=== PATIENT | male | born 1980 | race American Indian/Alaskan Native ===

== ENCOUNTER 2019-12-09 11:39 | Emergency (ER) | payer SELFPAY ==
--- NOTE | 2019-12-09 11:50 | Emergency Department Report ---
ED ENT HPI - General Chief complaint: Dental/Oral Stated complaint: TOOTH ACHE Time Seen by Provider: 12/09/19 11:43 Source: patient Mode of arrival: Ambulatory Limitations: No Limitations - History of Present Illness Initial comments: This is a 39-year-old male nontoxic well in appearance with no signs of distress presents to the ED with complaint of toothache. Patient has some swelling to left upper gingival. Denies following up with a dentist. Denies any fever, chills, headache, nausea, vomiting, chest pain or SOB. Denies any other complaints. Denies any allergies. MD complaint: tooth pain -: days(s) Location: tooth # Severity: mild Severity scale (0 -10): 8 Quality: aching Consistency: constant Improves with: none Worsens with: none Context- Dental: history of dental caries, poor dental care Associated Symptoms: gum swelling, toothache. denies: fever, cough, pain with swallowing, sore throat, tinnitus, hearing loss, discharge from ear, rhinorrhea - Related Data Previous Rx's Medication Instructions Recorded Last Taken Type Chlorhexidine Mouthwash [Peridex] 15 ml MM BID #1 bottle 12/09/19 Unknown Rx Clindamycin [Clindamycin CAP] 300 mg PO Q8H #21 cap 12/09/19 Unknown Rx Naproxen 500 mg PO Q8H PRN #20 tablet 12/09/19 Unknown Rx Allergies Allergy/AdvReac Type Severity Reaction Status Date / Time No Known Allergies Allergy Unverified 12/09/19 11:41 ED Dental HPI - General Chief complaint: Dental/Oral Stated complaint: TOOTH ACHE Time Seen by Provider: 12/09/19 11:43 Source: patient Mode of arrival: Ambulatory Limitations: No Limitations - Related Data Previous Rx's Medication Instructions Recorded Last Taken Type Chlorhexidine Mouthwash [Peridex] 15 ml MM BID #1 bottle 12/09/19 Unknown Rx Clindamycin [Clindamycin CAP] 300 mg PO Q8H #21 cap 12/09/19 Unknown Rx Naproxen 500 mg PO Q8H PRN #20 tablet 12/09/19 Unknown Rx Allergies Allergy/AdvReac Type Severity Reaction Status Date / Time No Known Allergies Allergy Unverified 12/09/19 11:41 ED Review of Systems ROS: Stated complaint: TOOTH ACHE Other details as noted in HPI Constitutional: denies: chills, fever Eyes: denies: eye pain, eye discharge, vision change ENT: dental pain. denies: ear pain, throat pain Respiratory: denies: cough, shortness of breath, wheezing Cardiovascular: denies: chest pain, palpitations Endocrine: no symptoms reported Gastrointestinal: denies: abdominal pain, nausea, diarrhea Genitourinary: denies: urgency, dysuria Musculoskeletal: denies: back pain, joint swelling, arthralgia Skin: denies: rash, lesions Neurological: denies: headache, weakness, paresthesias Psychiatric: denies: anxiety, depression Hematological/Lymphatic: denies: easy bleeding, easy bruising ED Past Medical Hx - Past Medical History Previous Medical History?: No - Medications Home Medications: Home Medications Medication Instructions Recorded Confirmed Last Taken Type Chlorhexidine Mouthwash [Peridex] 15 ml MM BID #1 bottle 12/09/19 Unknown Rx Clindamycin [Clindamycin CAP] 300 mg PO Q8H #21 cap 12/09/19 Unknown Rx Naproxen 500 mg PO Q8H PRN #20 tablet 12/09/19 Unknown Rx ED Physical Exam - General Limitations: No Limitations General appearance: alert, in no apparent distress - Head Head exam: Present: atraumatic, normocephalic - Eye Eye exam: Present: normal appearance - Expanded ENT Exam Expanded Ear exam: Present: normal external inspection Mouth exam: Present: normal external inspection, tongue normal. Absent: drooling, trismus, muffled voice Teeth exam: Present: dental caries, fractured tooth #, dental tenderness #, gi ngival enlargement, other (uvula midline. ) 1 - Fractured, Dental Tenderness 2 - Other (0.5 cm abscess) Throat exam: Positive: normal inspection, tonsillar exudate. Negative: tonsillar erythema, tonsillomegaly, R peritonsillar mass, L peritonsillar mass - Neck Neck exam: Present: normal inspection, full ROM. Absent: tenderness, meningismus, lymphadenopathy - Extremities Exam Extremities exam: Present: normal inspection, full ROM - Back Exam Back exam: Present: normal inspection, full ROM - Neurological Exam Neurological exam: Present: alert, oriented X3 - Psychiatric Psychiatric exam: Present: normal affect, normal mood - Skin Skin exam: Present: warm, dry, intact, normal color. Absent: rash ED Course - Reevaluation(s) Reevaluation #1: 12/09/19 11:51 Patient is speaking in full sentences with no signs of distress noted. - Procedure Description Procedures done: Under sterile field, I used drape and placed 4x4 inside mouth. I then used a 25g with 6 cc syringe and aspiriated 1 cc of drainage of the gingival abscess. Patient tolerated well. Bleeding under control. ED Medical Decision Making - Medical Decision Making Abscess present and drained. Will discharge with clinda. Patient was instructed to Follow-up with a dentist doctor in 2 days or if symptoms worsen and continue return to emergency room as soon as possible. At time of discharge, the patient does not seem toxic or ill in appearance. No acute signs of distress noted. Patient agrees to discharge treatment plan of care. No further questions noted by the patient. Critical care attestation.: If time is entered above; I have spent that time in minutes in the direct care of this critically ill patient, excluding procedure time. ED Disposition Clinical Impression: Dental caries, Gingivitis, Dental abscess Disposition: DC- TO HOME OR SELFCARE Is pt being admited?: No Does the pt Need Aspirin: No Condition: Stable Instructions: Dental Abscess (ED), Acetaminophen/Codeine (By mouth) Additional Instructions: Follow-up with a dentist doctor in 2 days or if symptoms worsen and continue return to emergency room as soon as possible. Prescriptions: Clindamycin [Clindamycin CAP] 300 mg PO Q8H #21 cap Naproxen 500 mg PO Q8H PRN #20 tablet PRN Reason: Pain, Moderate (4-6) Chlorhexidine Mouthwash [Peridex] 15 ml MM BID #1 bottle Referrals: PRIMARY CAREMD [Referring] - 3-5 Days JLUIÁN REYNOLDS MD [Staff Physician] - 3-5 Days [facility] [Provider Group] - 3-5 Days Forms: Work/School Release Form(ED)
[2019-12-09 12:09] VITALS: BP 137/95
== END 2019-12-09 12:06 | disposition home or self-care (01) ==
LOC: ED 11:39
DX: K04.7 Periapical abscess without sinus (principal); K02.9 Dental caries, unspecified; K05.10 Chronic gingivitis, plaque induced

== ENCOUNTER 2020-11-08 21:43 | Emergency (ER) | payer SELFPAY ==
[2020-11-08 22:55] LABS: Hematocrit 50.4 % (35.5-45.6); Hemoglobin 16.9 gm/dl (11.8-15.2); Mean Corpuscular HGB Conc 34 % (32-34); Mean Corpuscular Volume 100 fl (84-94); Platelet Count 371 K/mm3 (140-440); Red Blood Count 5.06 M/mm3 (3.65-5.03); Red Cell Distribution Width 14.7 % (13.2-15.2)
[2020-11-08 23:18] LABS: Albumin 4.2 g/dL (3.9-5); Calcium 9.5 mg/dL (8.4-10.2)
[2020-11-09] MEDS ORDERED: HYDROmorphone 1 MG/1 ML INJ IM ONE
[2020-11-09] MEDS ORDERED: ONDANSETRON 4 MG/2 ML INJ IV ONE
[2020-11-09] MEDS ORDERED: LACTATED RINGERS 1,000 ML IV ONE
--- NOTE | 2020-11-09 00:02 | Emergency Department Report ---
ED General Adult HPI - General Chief complaint: Abdominal Pain Stated complaint: ABD PAIN PUI?: No Time Seen by Provider: 11/08/20 23:30 Source: patient, RN notes reviewed, old records reviewed Mode of arrival: Ambulatory Limitations: No Limitations - History of Present Illness Initial comments: The patient was evaluated in the emergency department for symptoms described in the history of present illness. He/she was evaluated in the context of the global COVID-19 pandemic, which necessitated consideration that the patient m ight be at risk for infection with the virus that causes COVID-19. Institutional protocols and algorithms that pertain to the evaluation of patients at risk for COVID-19 are in a state of rapid change based on information released by regulatory bodies including the CDC and federal and state organizations. These policies and algorithms were followed during the patient's care in the emergency department. Please note that these policies, procedures and recommendations changed on a rapid basis. Chief complaint: "My stomach is hurting." Mr. 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 He reports he has been abstinent from alcohol consumption. He presents to the ER today with a complaint of epigastric discomfort, nausea, "it feels like my pancreas." Denies fever, loss of taste and smell, headache, neck pain, chest pain, testicular pain, urinary symptoms, fevers, myalgias, dietary indiscretions. His pain was improved with hydromorphone. He reports has not been taking labetalol or Norvasc. He reports no cold symptoms. -: Gradual, days(s) Location: abdomen Radiation: non-radiation Severity scale (0 -10): 7 Quality: aching Consistency: constant Improves with: medication, rest Worsens with: movement - Related Data Previous Rx's Medication Instructions Recorded Last Taken Type Chlorhexidine Mouthwash [Peridex] 15 ml MM BID #1 bottle 12/09/19 Unknown Rx Acetaminophen [Non-Aspirin Extra 500 mg PO Q6HR PRN #30 tablet 11/09/20 Unknown Rx Strength] Amlodipine Besylate [Norvasc] 5 mg PO QDAY #30 tablet 11/09/20 Unknown Rx Janis Root [Janis] 250 mg PO QID PRN #30 capsule 11/09/20 Unknown Rx Morphine Sulfate [Morphine Sulfate 7.5 mg PO Q6HR PRN #10 tablet 11/09/20 Unknown Rx IR] Ondansetron [Zofran Odt] 4 mg PO Q8HR PRN #20 tab.rapdis 11/09/20 Unknown Rx Allergies Allergy/AdvReac Type Severity Reaction Status Date / Time No Known Allergies Allergy Unverified 12/09/19 11:41 ED Review of Systems ROS: Stated complaint: ABD PAIN Other details as noted in HPI Constitutional: denies: fever Eyes: denies: eye discharge ENT: denies: epistaxis Respiratory: denies: cough Cardiovascular: denies: chest pain Gastrointestinal: abdominal pain, nausea. denies: vomiting, diarrhea, hematemesis, melena, hematochezia Genitourinary: denies: urgency, dysuria, testicular pain Musculoskeletal: denies: back pain Neurological: denies: weakness Hematological/Lymphatic: denies: easy bleeding ED Past Medical Hx - Past Medical History Previous Medical History?: Yes Hx Hypertension: Yes (non compliant with meds) Additional medical history: Pancreatitis - Surgical History Past Surgical History?: Yes Additional Surgical History: Trach - Social History Smoking Status: Current Every Day Smoker Substance Use Type: None - Medications Home Medications: Home Medications Medication Instructions Recorded Confirmed Last Taken Type Chlorhexidine Mouthwash [Peridex] 15 ml MM BID #1 bottle 12/09/19 Unknown Rx Acetaminophen [Non-Aspirin Extra 500 mg PO Q6HR PRN #30 tablet 11/09/20 Unknown Rx Strength] Amlodipine Besylate [Norvasc] 5 mg PO QDAY #30 tablet 11/09/20 Unknown Rx Janis Root [Janis] 250 mg PO QID PRN #30 capsule 11/09/20 Unknown Rx Morphine Sulfate [Morphine Sulfate 7.5 mg PO Q6HR PRN #10 tablet 11/09/20 Unknown Rx IR] Ondansetron [Zofran Odt] 4 mg PO Q8HR PRN #20 tab.rapdis 11/09/20 Unknown Rx ED Physical Exam - General Limitations: No Limitations General appearance: alert, in no apparent distress - Head Head exam: Present: atraumatic, normocephalic - Eye Eye exam: Present: normal appearance, EOMI. Absent: nystagmus - ENT ENT exam: Present: normal exam, normal orophraynx, mucous membranes moist, normal external ear exam - Neck Neck exam: Present: normal inspection, full ROM. Absent: tenderness, meningismus - Respiratory Respiratory exam: Present: normal lung sounds bilaterally. Absent: respiratory distress, wheezes, rales, rhonchi, stridor, chest wall tenderness, accessory muscle use, decreased breath sounds, prolonged expiratory - Cardiovascular Cardiovascular Exam: Present: regular rate, normal rhythm, normal heart sounds. Absent: bradycardia, tachycardia, irregular rhythm, systolic murmur, diastolic murmur, rubs, gallop - GI/Abdominal GI/Abdominal exam: Present: soft, normal bowel sounds. Absent: distended, tenderness, guarding, rebound, rigid, pulsatile mass - Rectal Rectal exam: Present: deferred - Extremities Exam Extremities exam: Present: normal inspection, full ROM, other (2+ pulses noted in the bilateral upper and lower extremities. There is no palpable cord. negative Homans sign. Muscular compartments are soft. The pelvis is stable.). Absent: pedal edema, calf tenderness - Back Exam Back exam: Present: normal inspection, full ROM. Absent: tenderness, CVA tenderness (R), CVA tenderness (L), paraspinal tenderness, vertebral tenderness - Neurological Exam Neurological exam: Present: alert, oriented X3, normal gait, other (No facial droop. Tongue midline. Extraocular movements intact bilaterally. Facial sensation intact to light touch in V1, V2, V3 distribution bilaterally. 5 and a 5 strength in 4 extremities. Sensation intact to light touch in 4 extremities.). Absent: motor sensory deficit - Psychiatric Psychiatric exam: Present: normal affect, normal mood - Skin Skin exam: Present: warm, dry, intact, normal color. Absent: rash ED Course Vital Signs 11/08/20 11/08/20 11/09/20 22:30 23:34 00:15 Temperature 98.4 F 98.2 F Pulse Rate 75 62 Respiratory 18 21 19 Rate Blood Pressure 216/111 Blood Pressure 175/91 [Left] O2 Sat by Pulse 98 95 Oximetry O2 Sat by Pulse Oximetry [ Digit-Finger] 11/09/20 11/09/20 11/09/20 00:45 00:48 01:01 Temperature Pulse Rate Respiratory 16 18 Rate Blood Pressure Blood Pressure [Left] O2 Sat by Pulse Oximetry O2 Sat by Pulse 99 Oximetry [ Digit-Finger] - Pulse Oximetry Interpretation Digit-Finger Initial Pulse Oximetry Readin O2 Sat by Pulse Oximetry: 99 Actions Taken: none ED Medical Decision Making - Lab Data Result diagrams: 11/08/20 22:43 11/08/20 22:43 Vital Signs 11/08/20 11/08/20 11/09/20 22:30 23:34 00:15 Temperature 98.4 F 98.2 F Pulse Rate 75 62 Respiratory 18 21 19 Rate Blood Pressure 216/111 Blood Pressure 175/91 [Left] O2 Sat by Pulse 98 95 Oximetry 11/09/20 11/09/20 00:45 00:48 Temperature Pulse Rate Respiratory 16 18 Rate Blood Pressure Blood Pressure [Left] O2 Sat by Pulse Oximetry Lab Results 11/08/20 11/08/20 11/08/20 Range/Units 22:43 22:43 22:43 WBC 12.2 H (4.5-11.0) K/mm3 RBC 5.06 H (3.65-5.03) M/mm3 Hgb 16.9 H (11.8-15.2) gm/dl Hct 50.4 H (35.5-45.6) % MCV 100 H (84-94) fl MCH 34 H (28-32) pg MCHC 34 (32-34) % RDW 14.7 (13.2-15.2) % Plt Count 371 (140-440) K/mm3 Eos % (Auto) [employer] Education [employer] Sodium 137 (137-145) mmol/L Potassium 4.7 (3.6-5.0) mmol/L Chloride 102.3 (98-107) mmol/L Carbon Dioxide 25 (22-30) mmol/L Anion Gap 14 mmol/L BUN 11 (9-20) mg/dL Creatinine 1.7 H (0.8-1.3) mg/dL Estimated GFR 54 ml/min BUN/Creatinine Ratio 6 % Glucose 104 H (75-100) mg/dL Calcium 9.5 (8.4-10.2) mg/dL Magnesium 2.00 (1.7-2.3) mg/dL Total Bilirubin 0.40 (0.1-1.2) mg/dL AST 29 (5-40) units/L ALT 43 (7-56) units/L Alkaline Phosphatase 184 H (35-129) units/L Total Creatine Kinase 162 (55-170) units/L Total Protein 7.6 (6.3-8.2) g/dL Albumin 4.2 (3.9-5) g/dL Albumin/Globulin Ratio 1.2 % Lipase 178 H (13-60) units/L - EKG Data -: EKG Interpreted by Me EKG shows normal: sinus rhythm - EKG Data When compared to previous EKG there are: previous EKG unavailable 11/09/20 00:56 Sinus rhythm, 64 bpm, normal axis, first-degree AV block, QTC within normal limits, nonspecific ST abnormality, low voltage in the lateral leads. Denies chest pain. This is an abnormal EKG. This is not a STEMI. - Radiology Data Radiology results: report reviewed, image reviewed CT ABDOMEN AND PELVIS WITH CONTRAST INDICATION / CLINICAL INFORMATION: Pt complains of acute abd pain, nausea, pancreatitis. TECHNIQUE: Axial CT images were obtained through the abdomen and pelvis after IV contrast. All CT scans at this location are performed using CT dose reduction for ALARA by means of automated exposure control. COMPARISON: CT dated 08/27/2017 FINDINGS: LOWER CHEST: No significant abnormality LIVER: Hepatic steatosis. GALLBLADDER/BILIARY TREE: No significant abnormality PANCREAS: No significant abnormality SPLEEN: No significant abnormality ADRENALS: Edematous appearance of the pancreatic tail with adjacent fat stranding and unencapsulated fluid. No organized fluid collection. KIDNEYS / URETER: No significant abnormality URINARY BLADDER: Bladder is decompressed, limiting further evaluation. REPRODUCTIVE ORGANS: No significant abnormality STOMACH / SMALL BOWEL: Stomach and small bowel are normal in caliber. No evidence of bowel inflammation. COLON: The colon is unremarkable. The appendix is normal in caliber. LYMPH NODES: Enlarged peripancreatic lymph node measures 1.5 cm, likely reactive. No additional adenopathy. VASCULATURE: No significant abnormality. OTHER: No free air, free fluid, or focal fluid collection is identified. SKELETAL SYSTEM: No acute osseous findings. IMPRESSION: Acute interstitial edematous pancreatitis involving the pancreatic tail. No organized fluid collection. Signer Name: Barry Cabral MD Signed: 11/08/2020 11:50 PM Workstation Name: [id number] - Medical Decision Making Differential diagnosis, including but not limited to: Pancreatitis, hypertension, medication noncompliance Assessment and plan: 40-year-old gentleman with a history of pancreatitis and hypertension, presenting with abdominal pain and nausea, incidental hypertension, likely pancreatitis. CT scan of the abdomen pelvis is obtained, and demonstrates uncomplicated tail pancreatitis. Blood pressure improved, currently in the 170s. Patient resting comfortably in stretcher, in no acute distress, abdomen soft and benign, without rebound, guarding or peritoneal signs. Extensive discussion had with patient regarding various options for management. I did offer the patient admission if he wanted for supportive care, but I also felt that the patient could be managed successfully as an outpatient, with oral medications, clear liquid diet, and advancement of diet as tolerated. Patient prefers to be discharged, as he is concerned about the risks of admission and hospitalization, sepsis slip and fall, DVT, diarrhea, and COVID-19. He is reliable to return to the emergency room right away if and when he clinically worsens. Therefore, through shared decision-making, we agreed to discharge patient with agreement to follow-up closely with outpatient primary care, or gastroenterology. Heart rate currently in the 60s, will hold labetalol, but I will discharge with prescription for Norvasc. The patient may follow-up with a primary care doctor for both blood pressure and pancreatitis, as well as follow-up with the primary care doctor or workers compensation claims examiner for his pancreatitis. Patient tolerating liquid feeds at this time, with no active vomiting, return precautions are reviewed. Critical care attestation.: If time is entered above; I have spent that time in minutes in the direct care of this critically ill patient, excluding procedure time. ED Disposition Clinical Impression: Elevated blood pressure reading, Medication refill Pancreatitis Qualifiers: Chronicity: acute Pancreatitis type: unspecified pancreatitis type Acute pancreatitis complication: no infection or necrosis Qualified Code(s): K85.90 - Acute pancreatitis without necrosis or infection, unspecified Disposition: DC-01 TO HOME OR SELFCARE Is pt being admited?: No Does the pt Need Aspirin: No Condition: Good Instructions: Acute Pancreatitis, Hypertension, Adult, Managing Your Hy pertension, Acute Pancreatitis, [id number] Additional Instructions: Avoid consumption of Motrin, ibuprofen, Naprosyn, Aleve, alcohol, tobacco, smoke products, heavy and spicy foods. Do not take metformin medication for the next 2 days, if patient takes this medication. Take the pain medication as needed, nausea medication as needed, and blood pressure medication as directed. Gently advance diet, starting with clear liquids, avoid caffeinated beverages, carbonated beverages, heavy and spicy foods, when advancing diet, initiate with bread, rice, apples, toast, soup, and bland foods. Recommend follow-up with a primary care doctor or workers compensation claims examiner within the next 3 to 5 days for repeat checkup/evaluation. Please make certain to take blood pressure medication as directed. Patient was found to have elevated blood pressure and hypertension today in the emergency room. Long-term complications of hypertension and elevated blood pressure include stroke, heart attack, disability, paralysis, permanent loss of quality of life. Please return to the emergency room right away with new pain, worsened pain, migration of pain, projectile vomiting, change in mental status, confusion, inability to tolerate liquid feeds, new, worsened or different symptoms not present on the initial emergency room evaluation. Referrals: JULIÁN REYNOLDS MD [Staff Physician] - 3-5 Days [facility] [Provider Group] - 3-5 Days Forms: Work/School Release Form(ED)
[2020-11-09] MEDS ORDERED: HYDROmorphone 1 MG/1 ML INJ IV ONE (00:46)
--- NOTE | 2020-11-09 00:54 | Cat Scan Report ---
CT ABDOMEN AND PELVIS WITH CONTRAST INDICATION / CLINICAL INFORMATION: Pt complains of acute abd pain, nausea, pancreatitis. TECHNIQUE: Axial CT images were obtained through the abdomen and pelvis after IV contrast. All CT sc ans at this location are performed using CT dose reduction for ALARA by means of automated exposure c ontrol. COMPARISON: CT dated 08/27/2017 FINDINGS: LOWER CHEST: No significant abnormality LIVER: Hepatic steatosis. GALLBLADDER/BILIARY TREE: No significant abnormality PANCREAS: No significant abnormality SPLEEN: No significant abnormality ADRENALS: Edematous appearance of the pancreatic tail with adjacent fat stranding and unencapsulated fluid. No organized fluid collection. KIDNEYS / URETER: No significant abnormality URINARY BLADDER: Bladder is decompressed, limiting further evaluation. REPRODUCTIVE ORGANS: No significant abnormality STOMACH / SMALL BOWEL: Stomach and small bowel are normal in caliber. No evidence of bowel inflammati on. COLON: The colon is unremarkable. The appendix is normal in caliber. LYMPH NODES: Enlarged peripancreatic lymph node measures 1.5 cm, likely reactive. No additional adeno nubia. VASCULATURE: No significant abnormality. OTHER: No free air, free fluid, or focal fluid collection is identified. SKELETAL SYSTEM: No acute osseous findings. IMPRESSION: Acute interstitial edematous pancreatitis involving the pancreatic tail. No organized fluid collectio n. Signer Name: Barry Cabral MD Signed: 11/09/2020 12:50 AM Workstation Name: [id number]
[2020-11-09] MEDS ORDERED: oxyCODONE /ACETAMINOPHEN 5-325MG TAB PO ONE (01:01)
[2020-11-09] MEDS ORDERED: amLODIPine 5 MG TAB PO ONE (01:01)
[2020-11-09 01:25] VITALS: BP 202/109
[2020-11-09 02:23] LABS: Total Cells Counted 100
[2020-11-09 02:25] LABS: Stomatocytes 1+
[2020-11-09 02:27] LABS: Platelet Estimate Consistent w Auto
== END 2020-11-09 01:34 | disposition home or self-care (01) ==
LOC: ED 21:43
DX: K85.90 Acute pancreatitis without necrosis or infection, unspecified (principal); R03.0 Elevated blood-pressure reading, without diagnosis of hypertension; I10 Essential (primary) hypertension; F17.200 Nicotine dependence, unspecified, uncomplicated; Z79.899 Other long term (current) drug therapy; Z76.0 Encounter for issue of repeat prescription
CPT/HCPCS: 36415; 74177; 80053; 82550; 83690; 83735; 85007; 85025; 93005; 96361; 96372; 96374; 96375; 99284; J1170; J2405; J7120; Q9967

== ENCOUNTER 2021-07-17 10:08 | Emergency (ER) | payer SELFPAY ==
[2021-07-17] MEDS ORDERED: FAMOTIDINE 20 MG/2 ML INJ IV ONE (10:48)
[2021-07-17] MEDS ORDERED: DICYCLOMINE 20 MG TAB PO ONE (10:48)
[2021-07-17] MEDS ORDERED: METOCLOPRAMIDE 10 MG/2 ML INJ IV ONE (10:48)
[2021-07-17] MEDS ORDERED: SODIUM CHLORIDE 0.9% 1000 ML 1,000 ML IV ONE (10:48)
[2021-07-17] MEDS ORDERED: diphenhydrAMINE 50 MG/ML VIAL IV ONE (10:49)
[2021-07-17 11:22] LABS: Basophils % (Auto) 0.3 % (0.0-1.8); Eosinophils # (Auto) 1.2 K/mm3 (0.0-0.4); Eosinophils % (Auto) 13.9 % (0.0-4.3); Lymphocytes % (Auto) 10.9 % (13.4-35.0); Mean Corpuscular HGB Conc 33 % (32-34); Mean Corpuscular Volume 103 fl (84-94); Monocytes # (Auto) 0.4 K/mm3 (0.0-0.8); Monocytes % (Auto) 4.2 % (0.0-7.3); Platelet Count 330 K/mm3 (140-440); Red Blood Count 4.64 M/mm3 (3.65-5.03)
--- NOTE | 2021-07-17 11:38 | Emergency Department Report ---
ED Abdominal Pain HPI - General Chief Complaint: Abdominal Pain Stated Complaint: pancreas Time Seen by Provider: 07/17/21 10:33 Source: patient Mode of arrival: Ambulatory Limitations: No Limitations - History of Present Illness Initial Comments: This is a 38-year-old male nontoxic, well nourished in appearance, no acute signs of distress presents to the ED with c/o of nausea and vomiting and abdominal pain 1 day. Patient that has history of pancreatitis and symptoms are similar. Patient stated last alcoholic intake was last week which was wine. Patient describes vomiting as food content and yellow gastric acid. Patient describes abdominal pain as cramping and aching with level of 8/10 diffuse. Patient denies chest pain, short of breath, fever, hemoptysis, blood in stool, chills, headache, stiff neck, numbness or tingling. Patient denies any diarrhea or constipation. Denies any blood in stool. Patient denies any recent travels. Patient denies any drug allergies. MD Complaint: abdominal pain Location: diffuse Radiation: none Migration to: no migration Severity: mild Severity scale (0 -10): 8 Quality: cramping, aching Consistency: constant Improves With: nothing Worsens With: nothing Associated Symptoms: nausea, vomiting. denies: diarrhea, fever, chills, constipation, dysuria, hematemesis, hematochezia, melena, hematuria, anorexia, syncope - Related Data Previous Rx's Medication Instructions Recorded Last Taken Type Amlodipine Besylate [Norvasc] 5 mg PO QDAY #30 tablet 11/09/20 Unknown Rx traMADoL [Ultram 50 MG tab] 50 mg PO Q6HR #10 tablet 11/09/20 Unknown Rx Acetaminophen/Codeine [Tylenol 1 tab PO Q6H PRN #12 tab 07/17/21 Unknown Rx /Codeine # 3 tab] Ondansetron [Zofran Odt] 4 mg PO Q8HR PRN #12 tab.rapdis 07/17/21 Unknown Rx Allergies Allergy/AdvReac Type Severity Reaction Status Date / Time No Known Allergies Allergy Verified 07/17/21 10:16 ED Review of Systems ROS: Stated complaint: pancreas Other details as noted in HPI Comment: All other systems reviewed and negative Constitutional: denies: chills, fever Eyes: denies: eye pain, eye discharge, vision change ENT: denies: ear pain, throat pain Respiratory: denies: cough, shortness of breath, wheezing Cardiovascular: denies: chest pain, palpitations Endocrine: no symptoms reported Gastrointestinal: abdominal pain, nausea, vomiting. denies: diarrhea, constipation, hematemesis, melena, hematochezia Genitourinary: denies: urgency, dysuria Musculoskeletal: denies: back pain, joint swelling, arthralgia Skin: denies: rash, lesions Neurological: denies: headache, weakness, paresthesias Psychiatric: denies: anxiety, depression Hematological/Lymphatic: denies: easy bleeding, easy bruising ED Past Medical Hx - Past Medical History Hx Hypertension: Yes (non compliant with meds) Hx Congestive Heart Failure: No Hx Diabetes: No Hx Asthma: No Hx COPD: No Hx HIV: No Additional medical history: Pancreatitis - Surgical History Additional Surgical History: Trach - Social History Smoking Status: Never Smoker - Medications Home Medications: Home Medications Medication Instructions Recorded Confirmed Last Taken Type Amlodipine Besylate [Norvasc] 5 mg PO QDAY #30 tablet 11/09/20 07/17/21 Unknown Rx traMADoL [Ultram 50 MG tab] 50 mg PO Q6HR #10 tablet 11/09/20 07/17/21 Unknown Rx Acetaminophen/Codeine [Tylenol 1 tab PO Q6H PRN #12 tab 07/17/21 Unknown Rx /Codeine # 3 tab] Ondansetron [Zofran Odt] 4 mg PO Q8HR PRN #12 tab.rapdis 07/17/21 Unknown Rx ED Physical Exam - General Limitations: No Limitations General appearance: alert, in no apparent distress - Head Head exam: Present: atraumatic, normocephalic - Eye Eye exam: Present: normal appearance - Neck Neck exam: Present: normal inspection, full ROM. Absent: lymphadenopathy - Respiratory Respiratory exam: Present: normal lung sounds bilaterally. Absent: respiratory distress, wheezes, rales, rhonchi, stridor, chest wall tenderness, accessory muscle use, decreased breath sounds, prolonged expiratory - Cardiovascular Cardiovascular Exam: Present: regular rate, normal rhythm, normal heart sounds. Absent: bradycardia, tachycardia, irregular rhythm, systolic murmur, diastolic murmur, rubs, gallop - GI/Abdominal GI/Abdominal exam: Present: soft, tenderness (diffuse), normal bowel sounds. Absent: distended, guarding, rebound, rigid, diminished bowel sounds - Extremities Exam Extremities exam: Present: normal inspection, full ROM, normal capillary refill. Absent: tenderness - Back Exam Back exam: Present: normal inspection, full ROM. Absent: tenderness, CVA tenderness (R), CVA tenderness (L), muscle spasm, paraspinal tenderness, vertebral tenderness, rash noted - Neurological Exam Neurological exam: Present: alert, oriented X3, normal gait - Psychiatric Psychiatric exam: Present: normal affect, normal mood - Skin Skin exam: Present: warm, dry, intact, normal color. Absent: rash ED Course Vital Signs 07/17/21 07/17/21 07/17/21 10:15 14:13 14:16 Temperature 98.0 F 98.2 F 98.2 F Pulse Rate 72 75 Respiratory 20 18 18 Rate Blood Pressure 173/104 Blood Pressure 157/92 [Right] O2 Sat by Pulse 85 100 Oximetry 07/17/21 07/17/21 15:05 15:08 Temperature 97.8 F 97.4 F L Pulse Rate 83 78 Respiratory 16 16 Rate Blood Pressure Blood Pressure 159/104 [Right] O2 Sat by Pulse 98 95 Oximetry Vital Signs 07/17/21 10:15 Temperature 98.0 F Pulse Rate 72 Respiratory 20 Rate Blood Pressure 173/104 O2 Sat by Pulse 85 Oximetry - Reevaluation(s) Reevaluation #1: 07/17/21 11:37 Patient is speaking in full sentences with no signs of distress noted. Reevaluation #2: 07/17/21 14:05 Patient is resting comfortably with no acute signs of distress. Vital signs are stable. Awaiting for planishing press operator consult. Pain is currently under control at this time. Reevaluation #3: 07/17/21 15:01 A p.o. challenge has been obtained and patient tolerated well with no nausea vomiting. Pain is currently under control. Will discharge patient at this time. - Consultations Consultation #1: 07/17/21 14:05 Patient has been consulted with Omayra Black about patient history, physical exam, and labs/imaging results and and agrees to ED plan of care with planishing press operator consult. Consultation #2: 07/17/21 14:21 Patient has been consulted with Crow Heard about patient history, physical exam, and labs/imaging results and patient can be discharged with follow-up. ED Medical Decision Making - Lab Data Result diagrams: 07/17/21 10:58 07/17/21 10:58 Lab Results 07/17/21 07/17/21 07/17/21 Range/Units 10:58 10:58 13:29 WBC 8.9 (4.5-11.0) K/mm3 RBC 4.64 (3.65-5.03) M/mm3 Hgb 16.0 H (11.8-15.2) gm/dl Hct 48.0 H (35.5-45.6) % MCV 103 H (84-94) fl MCH 34 H (28-32) pg MCHC 33 (32-34) % RDW 14.0 (13.2-15.2) % Plt Count 330 (140-440) K/mm3 Lymph % (Auto) 10.9 L (13.4-35.0) % [place] % (Auto) 4.2 (0.0-7.3) % Eos % (Auto) 13.9 H (0.0-4.3) % Baso % (Auto) 0.3 (0.0-1.8) % Lymph # (Auto) 1.0 L (1.2-5.4) K/mm3 [place] # (Auto) 0.4 (0.0-0.8) K/mm3 Eos # (Auto) 1.2 H (0.0-0.4) K/mm3 Baso # (Auto) 0.0 (0.0-0.1) K/mm3 Seg Neutrophils % 70.7 H (40.0-70.0) % Seg Neutrophils # 6.3 (1.8-7.7) K/mm3 Sodium 136 L (137-145) mmol/L Potassium 4.6 (3.6-5.0) mmol/L Chloride 101.4 (98-107) mmol/L Carbon Dioxide 23 (22-30) mmol/L Anion Gap 16 mmol/L BUN 11 (9-20) mg/dL Creatinine 1.3 (0.8-1.3) mg/dL Estimated GFR > 60 ml/min BUN/Creatinine Ratio 8 % Glucose 97 (75-100) mg/dL Calcium 8.2 L (8.4-10.2) mg/dL Total Bilirubin 0.80 (0.1-1.2) mg/dL AST 17 (5-40) units/L ALT 18 (7-56) units/L Alkaline Phosphatase 206 H (35-129) units/L Total Protein 6.8 (6.3-8.2) g/dL Albumin 3.1 L (3.9-5) g/dL Albumin/Globulin Ratio 0.8 % Lipase 537 H (13-60) units/L Urine Color Straw (Yellow) Urine Turbidity Clear (Clear) Urine pH 7.0 (5.0-7.0) Ur Specific [place] 1.031 H (1.003-1.030) Urine Protein 100 mg/dl (Negative) mg/dL Urine Glucose (UA) Neg (Negative) mg/dL Urine Ketones Tr (Negative) mg/dL Urine Blood Sm (Negative) Urine Nitrite Neg (Negative) Urine Bilirubin Neg (Negative) Urine Urobilinogen < 2.0 (<2.0) mg/dL Ur Leukocyte Esterase Neg (Negative) Urine WBC (Auto) 4.0 (0.0-6.0) /HPF Urine RBC (Auto) 3.0 (0.0-6.0) /HPF U Epithel Cells (Auto) 1.0 (0-13.0) /HPF - Radiology Data [facility] [address] [place] [address] Cat Scan Report Signed Patient: YSABEL CHARLES MR#: [id number] : 1980 Acct:[id number] Age/Sex: 41 / M ADM Date: 07/17/21 Loc: ED Attending Dr: Ordering Physician: DOC OSEI NP Date of Service: 07/17/21 Procedure(s): CT abdomen pelvis w con Accession Number(s): [id number] cc: DOC OSEI NP CT ABDOMEN WITH CONTRAST INDICATION / CLINICAL INFORMATION: abd pain w/ n/v 100 ml omni 300 . TECHNIQUE: Axial CT images were obtained through the abdomen after IV contrast. All CT scans at this location are performed using CT dose reduction for ALARA by means of automated exposure control. COMPARISON: CT 11/09/2020 FINDINGS: LOWER CHEST: No significant abnormality. LIVER: No significant abnormality. GALLBLADDER: No significant abnormality. BILE DUCTS: No significant abnormality. PANCREAS: Peripancreatic stranding without stone or pancreatic ductal dilation identified. No areas of necrosis or peripancreatic fluid collection. Stable 2.4 x 1.2 cm lobulated lesion adjacent pancreatic tail is nonspecific but may represent ectopic pancreatic tissue versus lymph node. SPLEEN: No significant abnormality. ADRENALS: No significant abnormality. RIGHT KIDNEY / URETER: No significant abnormality. LEFT KIDNEY / URETER: No significant abnormality. STOMACH / SMALL BOWEL: Tiny hiatal hernia. Small bowel is nondilated. COLON: No significant abnormality. APPENDIX: No significant abnormality. PERITONEUM: No free fluid. No free air. No fluid collection. LYMPH NODES: No additional adenopathy. AORTA / ARTERIES: No significant abnormality. IVC / VEINS: No significant abnormality. ADDITIONAL FINDINGS: None. SKELETAL SYSTEM: No significant abnormality. IMPRESSION: 1. Acute interstitial edematous pancreatitis without peripancreatic fluid collection. There is a stable lesion adjacent to the pancreatic tail as described above which is nonspecific but could represent a lymph node or heterotopic pancreatic tissue. Signer Name: Ramírez Carey MD Signed: 07/17/2021 12:52 PM Workstation Name: [email or web address] Transcribed By: MACY Dictated By: RAMÍREZ CAREY MD Electronically Authenticated By: RAMÍREZ CAREY MD Signed Date/Time: 07/17/21 1252 DD/ 1245 TD/TT: - Medical Decision Making This is a 41-year-old male that presents with acute pancreatitis. Patient is stable and was examined by me. Labs obtained. UA obtained. CT of abdomen obtained and dictated by the radiologist. Patient is notified of the report with no questions noted by the patient. Vital signs are stable prior to discharge. Patient received medical treatment in the ED which patient stated symptoms has resovled and subsided. Was instructed note to operate any machinery due to possible drowsiness and stated someone will drive the patient home. A by mouth challenge has been obtained and patient tolerated well with no nausea vomiting. Patient was notified of strict precatuions of appendictis symptoms and to return to the ED if symptoms occurs as soon as possible. Patient was also instructed to Follow-up with a planishing press operator doctor in 3-5 days or if symptoms worsen and continue return to emergency room as soon as possible. At time of discharge, the patient does not seem toxic or ill in appearance. No acute signs of distress noted. Patient agrees to discharge treatment plan of care. No further questions noted by the patient. Critical care attestation.: If time is entered above; I have spent that time in minutes in the direct care of this critically ill patient, excluding procedure time. ED Disposition Clinical Impression: Pancreatitis Qualifiers: Chronicity: acute Pancreatitis type: alcohol induced Acute pancreatitis complication: no infection or necrosis Qualified Code(s): K85.20 - Alcohol induced acute pancreatitis without necrosis or infection Disposition: 01 HOME / SELF CARE / HOMELESS Is pt being admited?: No Does the pt Need Aspirin: No Condition: Stable Instructions: Acute Pancreatitis, [id number] Additional Instructions: Follow-up with a planishing press operator doctor in 3-5 days or if symptoms worsen and continue return to emergency room as soon as possible. Do not operate any machinery while taking Tylenol with codeine as this may cause drowsiness. Prescriptions: Acetaminophen/Codeine [Tylenol /Codeine # 3 tab] 1 tab PO Q6H PRN #12 tab PRN Reason: Pain , Severe (7-10) Ondansetron [Zofran Odt] 4 mg PO Q8HR PRN #12 tab.rapdis PRN Reason: Nausea Referrals: PRIMARY CAREMD [Primary Care Provider] - 3-5 Days JULIÁN REYNOLDS MD [Staff Physician] - 3-5 Days [facility] [Provider Group] - 3-5 Days Forms: Work/School Release Form(ED) Time of Disposition: 15:05
[2021-07-17 11:39] LABS: Alanine Aminotransferase 18 units/L (7-56); Albumin 3.1 g/dL (3.9-5); BUN/Creatinine Ratio 8; Blood Urea Nitrogen 11 mg/dL (9-20); Calcium 8.2 mg/dL (8.4-10.2); Hemolysis Index 11
--- NOTE | 2021-07-17 12:57 | Cat Scan Report ---
CT ABDOMEN WITH CONTRAST INDICATION / CLINICAL INFORMATION: abd pain w/ n/v 100 ml omni 300 . TECHNIQUE: Axial CT images were obtained through the abdomen after IV contrast. All CT scans at this location are performed using CT dose reduction for ALARA by means of automated exposure control. COMPARISON: CT 11/09/2020 FINDINGS: LOWER CHEST: No significant abnormality. LIVER: No significant abnormality. GALLBLADDER: No significant abnormality. BILE DUCTS: No significant abnormality. PANCREAS: Peripancreatic stranding without stone or pancreatic ductal dilation identified. No areas o f necrosis or peripancreatic fluid collection. Stable 2.4 x 1.2 cm lobulated lesion adjacent pancreat ic tail is nonspecific but may represent ectopic pancreatic tissue versus lymph node. SPLEEN: No significant abnormality. ADRENALS: No significant abnormality. RIGHT KIDNEY / URETER: No significant abnormality. LEFT KIDNEY / URETER: No significant abnormality. STOMACH / SMALL BOWEL: Tiny hiatal hernia. Small bowel is nondilated. COLON: No significant abnormality. APPENDIX: No significant abnormality. PERITONEUM: No free fluid. No free air. No fluid collection. LYMPH NODES: No additional adenopathy. AORTA / ARTERIES: No significant abnormality. IVC / VEINS: No significant abnormality. ADDITIONAL FINDINGS: None. SKELETAL SYSTEM: No significant abnormality. IMPRESSION: 1. Acute interstitial edematous pancreatitis without peripancreatic fluid collection. There is a stab le lesion adjacent to the pancreatic tail as described above which is nonspecific but could represent a lymph node or heterotopic pancreatic tissue. Signer Name: Ramírez Carey MD Signed: 07/17/2021 12:52 PM Workstation Name: [id number]
[2021-07-17] MEDS ORDERED: HYDROmorphone 1 MG/1 ML INJ IV ONE (13:41)
[2021-07-17 13:56] LABS: Bilirubin,Urine NEG (Negative); Blood,Urine SM (Negative); Color,Urine Straw (Yellow); Urobilinogen,Urine < 2.0 mg/dL (<2.0)
[2021-07-17 15:10] VITALS: BP 159/104
== END 2021-07-17 15:47 | disposition home or self-care (01) ==
LOC: ED 10:08
DX: K85.90 Acute pancreatitis without necrosis or infection, unspecified (principal); I10 Essential (primary) hypertension
CPT/HCPCS: 36415; 74177; 80053; 81001; 83690; 85025; 96361; 96374; 96375; 99284; J1170; J1200; J2765; Q9967